=== PATIENT | female | born 1980 | race American Indian/Alaskan Native ===

== ENCOUNTER 2017-06-03 13:14 | Emergency (ER) | payer SELFPAY ==
[2017-06-03 13:25] VITALS: BP 135/75
--- NOTE | 2017-06-03 14:41 | Emergency Department Report ---
Chief Complaint: Extremity Injury, Lower Stated Complaint: KNEE PAIN - HPI History of Present Illness: 36 presents with knee popping and pain. NO trauma. - Exam Vital Signs: Vital Signs 06/03/17 13:21 Temperature 97.5 F L Pulse Rate 77 Respiratory 18 Rate Blood Pressure 135/75 O2 Sat by Pulse 100 Oximetry MSE screening note: Focused history and physical exam performed. Due to findings the following was ordered: ED Disposition for MSE Condition: Stable
[2017-06-03] MEDS ORDERED: NORCO 5/325 PO ONE (16:23)
--- NOTE | 2017-06-03 17:20 | Emergency Department Report ---
ED Lower Extremity HPI - General Chief Complaint: Extremity Injury, Lower Stated Complaint: KNEE PAIN Time Seen by Provider: 06/03/17 16:40 Source: patient Mode of arrival: Ambulatory Limitations: No Limitations - History of Present Illness Initial Comments: 36-year-old female past medical history arthritis, obesity presents with complaint of left knee pain for 2-3 days. Patient states she has clicking/ popping sensation as she walks left knee. Denies any direct trauma. Denies fevers or chills. Denies any falls on the left knee. States it is aching on the left lateral aspect of her knee. States she has a history of knee arthritis. Patient is ambulatory without assistance. Denies any paresthesias. MD Complaint: knee injury (left knee pain) Injury: Knee: Left Place: home, work, street/outdoors Severity: moderate Severity scale (0 -10): 5 Worsens With: movement, palpation Associated Symptoms: snap/pop sensation, swelling, ambulatory - Related Data Previous Rx's Medication Instructions Recorded Last Taken Type Naproxen 500 mg PO BID PRN #30 tablet 06/03/17 Unknown Rx Allergies Allergy/AdvReac Type Severity Reaction Status Date / Time penicillin V Allergy Swelling Verified 06/03/17 13:21 ED Review of Systems ROS: Stated complaint: KNEE PAIN Other details as noted in HPI Constitutional: denies: chills, fever Eyes: denies: eye pain, eye discharge, vision change ENT: denies: ear pain, throat pain Respiratory: denies: cough, shortness of breath, wheezing Cardiovascular: denies: chest pain, palpitations Endocrine: no symptoms reported Gastrointestinal: denies: abdominal pain, nausea, diarrhea Genitourinary: denies: urgency, dysuria, discharge Musculoskeletal: as per HPI, arthralgia. denies: back pain, joint swelling Skin: denies: rash, lesions Neurological: denies: headache, weakness, paresthesias Psychiatric: denies: anxiety, depression Hematological/Lymphatic: denies: easy bleeding, easy bruising ED Past Medical Hx - Past Medical History Hx Arthritis: Yes (right knee) Hx Asthma: Yes - Surgical History Past Surgical History?: No - Social History Smoking Status: Current Every Day Smoker Substance Use Type: None - Medications Home Medications: Home Medications Medication Instructions Recorded Confirmed Last Taken Type Naproxen 500 mg PO BID PRN #30 tablet 06/03/17 Unknown Rx ED Physical Exam - General Limitations: No Limitations General appearance: alert, in no apparent distress - Head Head exam: Present: atraumatic, normocephalic - Eye Eye exam: Present: normal appearance, PERRL, EOMI - ENT ENT exam: Present: mucous membranes moist - Neck Neck exam: Present: normal inspection - Respiratory Respiratory exam: Present: normal lung sounds bilaterally. Absent: respiratory distress - Cardiovascular Cardiovascular Exam: Present: regular rate, normal rhythm. Absent: systolic murmur, diastolic murmur, rubs, gallop - GI/Abdominal GI/Abdominal exam: Present: soft, normal bowel sounds - Extremities Exam Extremities exam: Present: normal inspection - Expanded Lower Extremity Exam Left Upper Leg exam: Present: normal inspection, full ROM Knee exam: Present: normal inspection, full ROM (left knee flexion and extension intact. Intact against resistance.), pain/laxity with valgus (some pain with valgus motion), full knee extension (patient is able to fully extend her left knee) Lower Leg exam: Present: normal inspection, full ROM Foot/Toe exam: Present: normal inspection, full ROM Neuro vascular tendon exam: Present: no vascular compromise (distal dorsalis pedis and posterior tibial pulses strong to palpation) Gait: Positive: antalgic (antalgic gait secondary to left knee pain) - Back Exam Back exam: Present: normal inspection - Neurological Exam Neurological exam: Present: alert, oriented X3, CN II-XII intact, abnormal gait (antalgic gait) - Psychiatric Psychiatric exam: Present: normal affect, normal mood - Skin Skin exam: Present: warm, dry, intact, normal color. Absent: rash ED Course Vital Signs 06/03/17 13:21 Temperature 97.5 F L Pulse Rate 77 Respiratory 18 Rate Blood Pressure 135/75 O2 Sat by Pulse 100 Oximetry ED Lower Extremity MDM - Medical Decision Making A/P: Left knee pain, possible meniscus or lateral collateral ligament injury 1- x-ray is unremarkable, I reviewed it with Dr. Cardenas before discharge 2- placed in the left knee immobilizer. Patient states she has crutches and canes at home. States she is being driven home by family friend 3- naproxen when necessary for pain. 4-follow-up with orthopedics. I explained to the patient that based on her clinical exam and symptoms she may have a lateral meniscus or lateral collateral ligaments issue. Patient stated she understood my explanation of her knee pain. Patient is ambulatory without assistance. Critical care attestation.: If time is entered above; I have spent that time in minutes in the direct care of this critically ill patient, excluding procedure time. ED Disposition Clinical Impression: Left knee pain Qualifiers: Chronicity: acute Qualified Code(s): M25.562 - Pain in left knee Disposition: - TO HOME OR SELFCARE Is pt being admited?: No Does the pt Need Aspirin: No Condition: Stable Instructions: Arthralgia (ED), Knee Pain (ED), RICE Therapy (ED) Prescriptions: Naproxen 500 mg PO BID PRN #30 tablet PRN Reason: Pain Referrals: [facility] [Provider Group] - 3-5 Days RACHAEL RODRIGUES MD [Staff Physician] - 3-5 Days [facility] [Outside] - 3-5 Days Forms: Accompanied Note, Work/School Release Form(ED) Time of Disposition: 17:33
--- NOTE | 2017-06-03 17:57 | XRay Report ---
FINAL REPORT EXAM: XR KNEE 3V LT HISTORY: knee pain TECHNIQUE: AP, oblique, and lateral views of the left knee PRIORS: None. FINDINGS: No acute fracture or dislocation is seen. The soft tissues demonstrate a moderate suprapatellar joint effusion. Joint spaces are maintained and bony mineralization is normal. IMPRESSION: No acute bony abnormality of the left knee. Moderate joint effusion.
== END 2017-06-03 17:45 | disposition home or self-care (01) ==
LOC: ED 13:14
DX: M25.562 Pain in left knee (principal); J45.909 Unspecified asthma, uncomplicated; F17.200 Nicotine dependence, unspecified, uncomplicated

== ENCOUNTER 2017-11-11 16:08 | Emergency (ER) | payer SELFPAY ==
[2017-11-11 16:40] VITALS: BP 97/71
[2017-11-11 17:21] LABS: Basophils % (Auto) 0.4 % (0.0-1.8); Eosinophils % (Auto) 0.5 % (0.0-4.3); Hematocrit 38.8 % (30.3-42.9); Hemoglobin 12.8 gm/dl (10.1-14.3); Lymphocytes # (Auto) 2.9 K/mm3 (1.2-5.4); Lymphocytes % (Auto) 31.6 % (13.4-35.0); Mean Corpuscular HGB Conc 33 % (30-34); Mean Corpuscular Hemoglobin 26 pg (28-32); Mean Corpuscular Volume 79 fl (79-97); Monocytes # (Auto) 0.6 K/mm3 (0.0-0.8); Monocytes % (Auto) 6.3 % (0.0-7.3); Platelet Count 310 K/mm3 (140-440); Red Blood Count 4.89 M/mm3 (3.65-5.03); Red Cell Distribution Width 18.5 % (13.2-15.2)
[2017-11-11 17:41] LABS: Alanine Aminotransferase 8 units/L (7-56); Albumin 3.5 g/dL (3.9-5); BUN/Creatinine Ratio 10; Blood Urea Nitrogen 9 mg/dL (7-17); Hemolysis Index 6
[2017-11-11 17:55] LABS: Bilirubin,Urine NEG (Negative); Blood,Urine NEG (Negative); Color,Urine Yellow (Yellow); Hyaline Casts,Urine 7 /LPF; Mucus,Urine 3+ /HPF; Protein,Urine <15 mg/dL mg/dL (Negative); Urobilinogen,Urine < 2.0 mg/dL (<2.0)
== END 2017-11-11 17:40 | disposition left against medical advice (07) ==
LOC: ED 16:08
DX: R07.9 Chest pain, unspecified (principal); Z53.21 Procedure and treatment not carried out due to patient leaving prior to being seen by health care provider
CPT/HCPCS: 36415; 80053; 81001; 85025

== ENCOUNTER 2018-11-10 23:23 | Emergency (ER) | payer SELFPAY ==
[2018-11-11 04:52] VITALS: BP 138/87
--- NOTE | 2018-11-11 05:25 | Emergency Department Report ---
ED General Adult HPI - General Chief complaint: Sore Throat Stated complaint: HEADACHE/SORE THROAT/EARACHE Time Seen by Provider: 11/11/18 05:00 Source: patient Mode of arrival: Ambulatory Limitations: No Limitations - History of Present Illness Initial comments: Patient is a 38-year-old -[place] female with no past medical history presents to the ED with complaint of acute onset persistent severe sore throat, bilateral ear pain, bilateral cervical lymph nodes pain for the last 6 days. Patient denies cough, chest pain, shortness of breath, fever, chills, nausea, vomiting, headache or dizziness. MD Complaint: sore throat, ear pain, -: Sudden, days(s) (6) Location: head, face Radiation: non-radiation Severity scale (0 -10): 7 Quality: aching, sharp Consistency: constant Improves with: none Worsens with: none Associated Symptoms: denies other symptoms, malaise. denies: confusion, chest pain, cough, diaphoresis, fever/chills, headaches, loss of appetite, nausea/vomiting, rash, seizure, shortness of breath, syncope, weakness Treatments Prior to Arrival: none - Related Data Previous Rx's Medication Instructions Recorded Last Taken Type Naproxen 500 mg PO BID PRN #30 tablet 06/03/17 Unknown Rx Azithromycin [Zithromax Z-PRITESH] 250 mg PO DAILY #1 pack 03/29/18 Unknown Rx Cetirizine HCl [ZyrTEC] 10 mg PO QAM 14 Days #14 capsule 03/30/18 Unknown Rx Fluticasone [Flonase] 1 spray NS QDAY 14 Days #1 bottle 03/30/18 Unknown Rx Ibuprofen [Motrin] 600 mg PO Q8H PRN #12 tablet 03/30/18 Unknown Rx Ibuprofen [Motrin] 800 mg PO Q8HR PRN #20 tablet 11/11/18 Unknown Rx levoFLOXacin [Levaquin TAB] 500 mg PO QDAY #10 tablet 11/11/18 Unknown Rx methylPREDNISolone [Medrol 4MG 4 mg PO DAILY #21 tab.ds.pk 11/11/18 Unknown Rx DOSEPAK (21 tabs)] Allergies Allergy/AdvReac Type Severity Reaction Status Date / Time penicillin V Allergy Swelling Verified 11/10/18 23:50 ED Review of Systems ROS: Stated complaint: HEADACHE/SORE THROAT/EARACHE Other details as noted in HPI Constitutional: denies: chills, fever Eyes: denies: eye pain, eye discharge, vision change ENT: ear pain, throat pain, congestion Respiratory: denies: cough, shortness of breath, wheezing Cardiovascular: denies: chest pain, palpitations Endocrine: no symptoms reported Gastrointestinal: denies: abdominal pain, nausea, diarrhea Genitourinary: denies: urgency, dysuria, discharge Musculoskeletal: denies: back pain, joint swelling, arthralgia Skin: denies: rash, lesions Neurological: denies: headache, weakness, paresthesias Psychiatric: denies: anxiety, depression Hematological/Lymphatic: denies: easy bleeding, easy bruising ED Past Medical Hx - Past Medical History Previous Medical History?: Yes Hx Arthritis: Yes (right knee) Hx Asthma: Yes - Surgical History Past Surgical History?: No - Social History Smoking Status: Never Smoker Substance Use Type: None - Medications Home Medications: Home Medications Medication Instructions Recorded Confirmed Last Taken Type Naproxen 500 mg PO BID PRN #30 tablet 06/03/17 Unknown Rx Azithromycin [Zithromax Z-PRITESH] 250 mg PO DAILY #1 pack 03/29/18 Unknown Rx Cetirizine HCl [ZyrTEC] 10 mg PO QAM 14 Days #14 capsule 03/30/18 Unknown Rx Fluticasone [Flonase] 1 spray NS QDAY 14 Days #1 bottle 03/30/18 Unknown Rx Ibuprofen [Motrin] 600 mg PO Q8H PRN #12 tablet 03/30/18 Unknown Rx Ibuprofen [Motrin] 800 mg PO Q8HR PRN #20 tablet 11/11/18 Unknown Rx levoFLOXacin [Levaquin TAB] 500 mg PO QDAY #10 tablet 11/11/18 Unknown Rx methylPREDNISolone [Medrol 4MG 4 mg PO DAILY #21 tab.ds.pk 11/11/18 Unknown Rx DOSEPAK (21 tabs)] ED Physical Exam - General Limitations: No Limitations General appearance: alert, in no apparent distress - Head Head exam: Present: atraumatic, normocephalic, normal inspection - Eye Eye exam: Present: normal appearance, PERRL, EOMI. Absent: scleral icterus, conjunctival injection Pupils: Present: normal accommodation - ENT ENT exam: Present: normal exam, mucous membranes moist, other (erythematous oropharyngeal and tonsillar area) - Neck Neck exam: Present: normal inspection, full ROM, lymphadenopathy. Absent: tenderness, meningismus, thyromegaly - Respiratory Respiratory exam: Present: normal lung sounds bilaterally. Absent: respiratory distress, wheezes, rales, chest wall tenderness, accessory muscle use, decreased breath sounds - Cardiovascular Cardiovascular Exam: Present: regular rate, normal rhythm, normal heart sounds. Absent: systolic murmur, diastolic murmur, rubs, gallop - GI/Abdominal GI/Abdominal exam: Present: soft, normal bowel sounds. Absent: tenderness, guarding, hypoactive bowel sounds, organomegaly - Rectal Rectal exam: Present: deferred - Extremities Exam Extremities exam: Present: normal inspection, full ROM, normal capillary refill - Back Exam Back exam: Present: normal inspection, full ROM. Absent: CVA tenderness (L), muscle spasm, paraspinal tenderness - Neurological Exam Neurological exam: Present: alert, oriented X3, CN II-XII intact, normal gait, reflexes normal - Psychiatric Psychiatric exam: Present: normal affect, normal mood - Skin Skin exam: Present: warm, dry, intact, normal color. Absent: rash ED Course Vital Signs 11/10/18 11/11/18 23:43 04:30 Temperature 98.2 F 98.7 F Pulse Rate 82 80 Respiratory 16 18 Rate Blood Pressure 124/85 Blood Pressure 138/87 [Left] O2 Sat by Pulse 100 99 Oximetry - Reevaluation(s) Reevaluation #1: 11/11/18 05:27 Patient is alert and oriented 3 and is not in distress with normal vital signs. Patient was discharged home on pain medications and antibiotics and advised to follow-up with her primary care physician in 7-10 days for reevaluation. Patient was advised to return to the ED immediately if symptoms get worse. ED Medical Decision Making - Medical Decision Making Patient is alert and oriented 3 and is not in distress with normal vital signs. Patient was discharged home on pain medications and antibiotics and advised to follow-up with her primary care physician in 7-10 days for reevaluation. Patient was advised to return to the ED immediately if symptoms get worse. - Differential Diagnosis acute pharyngitis, acute lymphadenopathy, acute URI Critical care attestation.: If time is entered above; I have spent that time in minutes in the direct care of this critically ill patient, excluding procedure time. ED Disposition Clinical Impression: Lymphadenopathy, anterior cervical Acute pharyngitis Qualifiers: Pharyngitis/tonsillitis etiology: unspecified etiology Qualified Code(s): J02.9 - Acute pharyngitis, unspecified Disposition: TO HOME OR SELFCARE Is pt being admited?: No Does the pt Need Aspirin: No Condition: Stable Instructions: Pharyngitis (ED), Lymphadenopathy (ED) Additional Instructions: Take medications with food, drink plenty of fluids and follow up with your Primary Care Physician in 7-10 days for reevaluation. Return to the ED immediately if symptoms get worse. Prescriptions: levoFLOXacin [Levaquin TAB] 500 mg PO QDAY #10 tablet methylPREDNISolone [Medrol 4MG DOSEPAK (21 tabs)] 4 mg PO DAILY #21 tab.ds.pk Ibuprofen [Motrin] 800 mg PO Q8HR PRN #20 tablet PRN Reason: Pain , Severe (7-10) Referrals: GLENN KOCH MD [Primary Care Provider] - 3-5 Days Time of Disposition: 05:23 Print Language: BOTSWANAN
== END 2018-11-11 05:54 | disposition home or self-care (01) ==
LOC: ED 23:23
DX: J02.9 Acute pharyngitis, unspecified (principal); R59.0 Localized enlarged lymph nodes; M25.561 Pain in right knee; J45.909 Unspecified asthma, uncomplicated; Z88.0 Allergy status to penicillin
CPT/HCPCS: 81025; 87116; 87430; 99283

== ENCOUNTER 2021-05-01 09:55 | Emergency (ER) | payer SELFPAY ==
[2021-05-01 10:59] VITALS: BP 107/70
[2021-05-01] MEDS ORDERED: dexAMETHasone 20 MG/5 ML VIAL IM ONE (11:48)
[2021-05-01] MEDS ORDERED: LIDOCAINE VISCOUS 2% 15 ML ORAL LIQD PO ONE (11:48)
--- NOTE | 2021-05-01 11:51 | Emergency Department Report ---
ED ENT HPI - General Chief complaint: Sore Throat Stated complaint: throat pain Source: patient Mode of arrival: Ambulatory Limitations: No Limitations - History of Present Illness Initial comments: 40-year-old -German female presents to the emergency room complaining of sore throat and bilateral ear pain for 3 days. Patient states that she cannot swallow. She reports that she had a fever and chills. She denies any nausea vomiting or abdominal pain. She states that she cannot swallow and she has been spitting. She has a past medical history of asthma and currently uses albuterol as needed. She states she is allergic to penicillin and does not have a primary care provider. MD complaint: sore throat, difficulty swallowing Onset/Timin -: days(s) - Related Data Previous Rx's Medication Instructions Recorded Last Taken Type Naproxen 500 mg PO BID PRN #30 tablet 06/03/17 Unknown Rx Azithromycin [Zithromax Z-PRITESH] 250 mg PO DAILY #1 pack 03/29/18 Unknown Rx Cetirizine HCl [ZyrTEC] 10 mg PO QAM 14 Days #14 capsule 03/30/18 Unknown Rx Fluticasone [Flonase] 1 spray NS QDAY 14 Days #1 bottle 03/30/18 Unknown Rx Ibuprofen [Motrin] 600 mg PO Q8H PRN #12 tablet 03/30/18 Unknown Rx Ibuprofen [Motrin] 800 mg PO Q8HR PRN #20 tablet 11/11/18 Unknown Rx levoFLOXacin [Levaquin TAB] 500 mg PO QDAY #10 tablet 11/11/18 Unknown Rx methylPREDNISolone [Medrol 4MG 4 mg PO DAILY #21 tab.ds.pk 11/11/18 Unknown Rx DOSEPAK (21 tabs)] Allergies Allergy/AdvReac Type Severity Reaction Status Date / Time penicillin V Allergy Swelling Verified 11/10/18 23:50 ED Dental HPI - General Chief complaint: Sore Throat Stated complaint: throat pain Source: patient Mode of arrival: Ambulatory Limitations: No Limitations - Related Data Previous Rx's Medication Instructions Recorded Last Taken Type Naproxen 500 mg PO BID PRN #30 tablet 06/03/17 Unknown Rx Azithromycin [Zithromax Z-PRITESH] 250 mg PO DAILY #1 pack 03/29/18 Unknown Rx Cetirizine HCl [ZyrTEC] 10 mg PO QAM 14 Days #14 capsule 03/30/18 Unknown Rx Fluticasone [Flonase] 1 spray NS QDAY 14 Days #1 bottle 03/30/18 Unknown Rx Ibuprofen [Motrin] 600 mg PO Q8H PRN #12 tablet 03/30/18 Unknown Rx Ibuprofen [Motrin] 800 mg PO Q8HR PRN #20 tablet 11/11/18 Unknown Rx levoFLOXacin [Levaquin TAB] 500 mg PO QDAY #10 tablet 11/11/18 Unknown Rx methylPREDNISolone [Medrol 4MG 4 mg PO DAILY #21 tab.ds.pk 11/11/18 Unknown Rx DOSEPAK (21 tabs)] Allergies Allergy/AdvReac Type Severity Reaction Status Date / Time penicillin V Allergy Swelling Verified 11/10/18 23:50 ED Review of Systems ROS: Stated complaint: throat pain Other details as noted in HPI ED Past Medical Hx - Past Medical History Hx Arthritis: Yes (right knee) Hx Asthma: Yes - Social History Smoking Status: Never Smoker Substance Use Type: None - Medications Home Medications: Home Medications Medication Instructions Recorded Confirmed Last Taken Type Naproxen 500 mg PO BID PRN #30 tablet 06/03/17 Unknown Rx Azithromycin [Zithromax Z-PRITESH] 250 mg PO DAILY #1 pack 03/29/18 Unknown Rx Cetirizine HCl [ZyrTEC] 10 mg PO QAM 14 Days #14 capsule 03/30/18 Unknown Rx Fluticasone [Flonase] 1 spray NS QDAY 14 Days #1 bottle 03/30/18 Unknown Rx Ibuprofen [Motrin] 600 mg PO Q8H PRN #12 tablet 03/30/18 Unknown Rx Ibuprofen [Motrin] 800 mg PO Q8HR PRN #20 tablet 11/11/18 Unknown Rx levoFLOXacin [Levaquin TAB] 500 mg PO QDAY #10 tablet 11/11/18 Unknown Rx methylPREDNISolone [Medrol 4MG 4 mg PO DAILY #21 tab.ds.pk 11/11/18 Unknown Rx DOSEPAK (21 tabs)] ED Physical Exam - General Limitations: No Limitations General appearance: alert, in no apparent distress - Head Head exam: Present: atraumatic, normocephalic - Eye Eye exam: Present: normal appearance - ENT ENT exam: Present: normal orophraynx, mucous membranes moist, normal external ear exam - Expanded ENT Exam Expanded Throat exam: Negative: tonsillar erythema, tonsillomegaly, tonsillar exudate - Neck Neck exam: Present: normal inspection - Respiratory Respiratory exam: Absent: respiratory distress, accessory muscle use - Cardiovascular Cardiovascular Exam: Present: regular rate, normal rhythm. Absent: systolic murmur, diastolic murmur, rubs, gallop - Extremities Exam Extremities exam: Present: normal inspection, full ROM - Back Exam Back exam: Present: normal inspection - Neurological Exam Neurological exam: Present: alert, oriented X3, normal gait - Psychiatric Psychiatric exam: Present: normal affect, normal mood - Skin Skin exam: Present: warm, dry, intact, normal color. Absent: rash ED Course Vital Signs 05/01/21 10:56 Temperature 98.7 F Pulse Rate 98 H Respiratory 16 Rate Blood Pressure 107/70 O2 Sat by Pulse 100 Oximetry ED Medical Decision Making - Medical Decision Making 40-year-old -German female presents to the emergency room complaining of sore throat and bilateral ear pain for 3 days. Patient states that she cannot swallow. She reports that she had a fever and chills. She denies any nausea vomiting or abdominal pain. She states that she cannot swallow and she has been spitting. She has a past medical history of asthma and currently uses albuterol as needed. She states she is allergic to penicillin and does not have a primary care provider. Patient is nontoxic no acute distress able to talk on the phone. Her vital signs are within normal limits she is afebrile. She is satting at 100% on room air. Rapid strep has been sent out and pending. Dexamethasone 10 mg IM and viscous lidocaine 15 mg has been ordered. Critical care attestation.: If time is entered above; I have spent that time in minutes in the direct care of this critically ill patient, excluding procedure time. ED Disposition Clinical Impression: Sore throat (viral) Disposition: HOME / SELF CARE / HOMELESS Is pt being admited?: No Does the pt Need Aspirin: No Condition: Stable Instructions: Sore Throat Additional Instructions: Strep test is negative. That means it is viral. Increase your fluid intake Tylenol and or ibuprofen as needed for pain. Recommend go get Covid tested. Follow-up with your primary care provider. Referrals: PRIMARY CARE, [Primary Care Provider] - 3-5 Days Your, primary care provider [Other] - 3-5 Days Forms: Work/School Release Form(ED) Time of Disposition: 12:18
== END 2021-05-01 12:54 | disposition home or self-care (01) ==
LOC: ED 09:55
DX: J02.8 Acute pharyngitis due to other specified organisms (principal); J45.909 Unspecified asthma, uncomplicated; M19.90 Unspecified osteoarthritis, unspecified site; Z88.0 Allergy status to penicillin
CPT/HCPCS: 87116; 87430; 96372; 99283; J1100